=== PATIENT | male | born 1990 | race Caucasian/White ===

== ENCOUNTER 2017-08-19 23:38 | Emergency (ER) | payer OTHER ==
[~2017-08-19 23:38] MED LIST: AUGMENTIN 875 M1 TAB PO; BACTROBAN OINT.15 GM TOP; IBUPROFEN800 MG PO; MOTRIN 600 MG600 MG PO; ZOFRAN 4 MG TABL4 MG PO; ZOFRAN ODT4 MG SL
[2017-08-19 23:45] VITALS: BP 127/94
--- NOTE | 2017-08-19 23:55 | ED PSYCHIATRIC COMPLAINT ---
History of Present Illness General Chief Complaint: ETOH/Drug Related Complaint Stated Complaint: BIBA +ETOH, FOUND SLEEPING IN BUSHES Source: patient, old records, EMS Exam Limitations: intoxication Vital Signs & Intake/Output Vital Signs & Intake/Output Vital Signs Date Time Temp Pulse Resp B/P B/P Pulse O2 O2 Flow FiO2 Mean Ox Delivery Rate 08/19 2358 100 Room Air 08/19 2345 98.3 123 18 127/94 97 Room Air Allergies Coded Allergies: No Known Allergies (03/18/17) Reconcile Medications AMOXICILLIN/POTASSIUM CLAV (Augmentin 875-125 Tablet) 875 MG/125 MG TAB 1 TAB PO BID DENTAL INFECTION Ibuprofen 800 MG TAB 1 TAB PO TID PRN PAIN Mupirocin (Bactroban Oint. 2% 15GM) 15 GM ONT 1 DEON TOP BID IMPETIGO Ondansetron (Zofran Odt) 4 MG TAB.RAPDIS 1 TAB SL Q8HR PRN NAUSEA Triage Note: TRIAGE: BIBA FOUND IN BUSHES, +ETOH. 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 DENIES SI/HI. SLURRED SPEECH NOTED. PER EMS, "WITNESSED 15 NIPS OF ETOH." PATIENT SPOKE TO MOTHJuan Jose ON PHONE ON ARRIVAL AND REPORTS, "MY GRANDMA IS GOING TO COME PICK ME UP NOW." Triage Nurses Notes Reviewed? yes Onset: Just prior to arrival Duration: hour(s):, constant, continues in ED Timing: recent history Severity: severe Associated Symptoms: impaired concentration HPI: Patient admits to alcohol ingestion found in bushes with decreased level of consciousness. He denies fever chills nausea vomiting diarrhea abdominal pain chest pain shortness breath headache dysuria rash bleeding. Past History Travel History Traveled to [place] past 21 day No Medical History Any Pertinent Medical History? 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 No Review of Systems Review of Systems Constitutional: Reports: no symptoms. EENTM: Reports: no symptoms. Respiratory: Reports: no symptoms. Cardiovascular: Reports: no symptoms. GI: Reports: no symptoms. Genitourinary: Reports: no symptoms. Musculoskeletal: Reports: no symptoms. Skin: Reports: no symptoms. Neurological/Psychological: Reports: see HPI, cognitive dysfunction, confusion. Hematologic/Endocrine: Reports: no symptoms. Immunologic/Allergic: Reports: no symptoms. All Other Systems: Reviewed and Negative Physical Exam Physical Exam General Appearance: well developed/nourished, alert, awake, mild distress Head: atraumatic, normal appearance Eyes: Bilateral: normal appearance, PERRL, EOMI. Ears, Nose, Throat: normal pharynx, normal ENT inspection, hearing grossly normal Neck: normal inspection, supple, full range of motion, no midline tenderness Respiratory: normal breath sounds Cardiovascular: regular rate/rhythm Gastrointestinal: soft, non-tender Extremities: normal range of motion Neurological/Psychiatric: awake, credit counselor II-XII nml as tested, disoriented x 3 Appearance/Memory/Insight: disheveled, impaired insight, impaired recent memory Behavoir/Eye Contact/Speech: cooperative Thoughts/Hallucinations: no apparent hallucination Skin: intact, normal color, warm/dry SAD PERSONS Done? patient not suicidal Progress Differential Diagnosis: drug intoxication, drug overdose, drug withdrawal, hypoglycemia Plan of Care: Orders Procedure Date/time Status ETHANOL 08/20 0003 Complete Laboratory Tests 08/20/17 0009: Serum Alcohol 414.0 Departure Departure Disposition: HOME OR SELF CARE Condition: Stable Clinical Impression Primary Impression: Alcohol intoxication delirium Referrals: Chana Sutton (PCP/Family) Departure Forms: DETOX FACILITIES LIST General Discharge Information
== END 2017-08-20 00:20 ==
LOC: ERH 23:38
DX: F10.921 Alcohol use, unspecified with intoxication delirium (principal)
CPT/HCPCS: G0480

== ENCOUNTER 2017-11-22 22:21 | Emergency (ER) | payer OTHER ==
[~2017-11-22] VITALS: Ht 154.9 cm; Wt 59.0 kg
[2017-11-22 22:56] LABS: ABSOLUTE BASOPHIL COUNT 0 /CUMM (0.0-0.2); ABSOLUTE EOSINOPHIL COUNT 0.2 /CUMM (0.0-0.7); ABSOLUTE GRANULOCYTE CT 4.6 /CUMM (1.4-6.5); ABSOLUTE LYMPH COUNT 3.8 /CUMM (1.2-3.4); ABSOLUTE MONOCYTE COUNT 0.9 /CUMM (0.10-0.60); BASOPHIL % 0.3 % (0.0-2.0); EOSINOPHIL % 1.9 % (0-5); GRANULOCYTE % 48.1 % (42.2-75.2); HEMATOCRIT 40.5 % (42-52); MEAN CORPUSCULAR HGB 32.6 PG (27.0-31.0); MEAN CORPUSCULAR VOLUME 95.7 FL (80.0-94.0); MEAN PLATELET VOLUME 8.3 FL (7.4-10.4); PLATELET COUNT 160 /CUMM (130-400); RBC DISTRIBUTION WIDTH 13.6 % (11.5-14.5); RED BLOOD CELL CT 4.24 /CUMM (4.70-6.10); WHITE BLOOD CELL COUNT 9.6 /CUMM (4.8-10.8)
--- NOTE | 2017-11-23 00:02 | ED GENERAL ADULT ---
See Addendum History of Present Illness General Chief Complaint: ETOH/Drug Related Complaint Stated Complaint: ETOH Source: patient, friend Exam Limitations: intoxication Vital Signs & Intake/Output Vital Signs & Intake/Output Vital Signs Date Time Temp Pulse Resp B/P B/P Pulse O2 O2 Flow FiO2 Mean Ox Delivery Rate 11/23 1410 98.2 88 18 124/79 98 Room Air Room Air 11/23 1119 97.9 95 18 129/93 96 Room Air Room Air 11/23 0751 97.0 80 20 116/68 96 Room Air 11/23 0609 98.3 88 18 115/70 98 Room Air 11/23 0355 98.3 97 22 110/83 95 Room Air 11/23 0009 98.8 112 20 118/59 95 Room Air 11/22 2224 96.8 114 18 143/97 95 Room Air ED Intake and Output 11/23 0000 11/22 1200 Intake Total Output Total 975 Balance -975 Output, Urine 975 Patient 130 lb Weight Weight Estimated Measurement Method Allergies Coded Allergies: No Known Allergies (03/18/17) Triage Note: PT BROUGHT TO ED BY EMPLOYERS S/P BEING "SEVERLY INTOXICATED AT WORK" WAS GOING OUTSIDE FREQUENTLY S/P ARRIVING AT WORK AT 4 PM. PT LIVES WITH GRANDMOTHER. PT HAS SEVERLY SLURRED SPEACH, HAS APPEARS WHAT TO BE VOMIT ON SHIRT, VERY UNSTABLE GAIT Triage Nurses Notes Reviewed? yes Onset: Abrupt Duration: day(s): (1), constant, continues in ED Timing: single episode today Injury Environment: home Severity: moderate, severe No Modifying Factors: none HPI: 27-year-old male history of depression and alcohol abuse presents for evaluation of intoxication. According to his coworkers he was found to be severely intoxicated at work. He was having difficulty walking slurring his speech. Patient is significantly intoxicated he is unable to contribute to history. He denies any concerns. Denies any history of withdrawal seizures. He denies any drug use. Denies suicidal or homicidal ideation. (Joao BENTON,Derek) Reconcile Medications No Known Home Medications (Ambrosio MITCHELL,Eugene) Past History Travel History Traveled to [place] past 21 day No Medical History Any Pertinent Medical History? 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 No (Derek Cabello) Review of Systems Review of Systems Constitutional: Reports: no symptoms. EENTM: Reports: no symptoms. Respiratory: Reports: no symptoms. Cardiovascular: Reports: no symptoms. GI: Reports: no symptoms. Genitourinary: Reports: no symptoms. Musculoskeletal: Reports: no symptoms. Skin: Reports: no symptoms. Neurological/Psychological: Reports: no symptoms. Hematologic/Endocrine: Reports: no symptoms. Immunologic/Allergic: Reports: no symptoms. All Other Systems: Reviewed and Negative (Derek Cabello) Physical Exam Physical Exam General Appearance: well developed/nourished, no apparent distress, alert, awake , intoxicated Head: atraumatic, normal appearance Eyes: Bilateral: normal appearance, PERRL, EOMI. Ears, Nose, Throat: normal pharynx, normal ENT inspection, hearing grossly normal Neck: normal inspection, supple, full range of motion Respiratory: normal breath sounds, chest non-tender, no respiratory distress, lungs clear Cardiovascular: regular rate/rhythm, normal peripheral pulses Peripheral Pulses: 2+ radial (R), 2+ radial (L) Gastrointestinal: soft, non-tender Back: normal inspection, normal range of motion Extremities: normal inspection, normal range of motion, no edema Neurologic/Psych: no motor/sensory deficits, awake, alert, oriented x 3, normal gait Skin: intact, normal color, warm/dry Lymphatic: no anterior cervical dre Core Measures ACS in differential dx? No CVA/TIA Diagnosis: No Sepsis Present: No Sepsis Focused Exam Completed? No (Derek Cabello) Progress Differential Diagnoses I considered the following diagnoses in my evaluation of the patient: [Alcohol intoxication, drug intoxication] Plan of Care: Orders Procedure Date/time Status Regular Diet 11/23 B Active CIWA 11/23 1404 Active ETHANOL 11/23 0830 Complete ED CRISIS PSYCH CONSULT 11/23 0321 Active URINE DRUG SCREEN FOR ER ONLY 11/22 223 Complete URINALYSIS 11/22 2234 Complete MAGNESIUM 11/22 223 Complete ETHANOL 11/22 2234 Complete COMPREHENSIVE METABOLIC PANEL 11/22 2234 Complete CBC WITHOUT DIFFERENTIAL 11/22 2234 Complete Current Medications Sig/Joann Start time Last Medication Dose Stop Time Status Admin Clonidine 0.1 MG Q8 11/23 2199 UNVr (Catapres) Gabapentin 300 MG Q8 11/23 2199 UNVr (Neurontin) Cyanocobalamin/ 1 BAG ONCE ONE 11/23 1814 AC 11/23 Thiamine/Pyridoxine 11/244 182 (Vitamin in I.V.) Dextrose/Water 1,000 ML (D5W 1000) Sodium Chloride 1,000 ML BOLUS ONE 11/23 1814 AC 11/23 (Normal Saline 0.9%) 11/23 1913 182 Laboratory Tests 11/23/17 0814: Serum Alcohol 307.0 11/22/17 2335: Urine Opiates Screen < 100, Methadone Screen < 40, Barbiturate Screen < 60, Ur Phencyclidine Scrn < 6.00, Amphetamines Screen < 100, U Benzodiazepines Scrn < 85, Urine Cocaine Screen < 50, Urine Cannabis Screen 18.80, Urine Color STRAW, Urine Clarity CLEAR, Urine pH 7.0, Ur Specific [place] 1.010, Urine Protein NEG, Urine Ketones NEG, Urine Nitrite NEG, Urine Bilirubin NEG, Urine Urobilinogen 0.2, Ur Leukocyte Esterase NEG, Ur Microscopic EXAM NOT REQUIRED, Urine Hemoglobin NEG, Urine Glucose NEG 11/22/178: Anion Gap 19 H, Estimated GFR > 60, BUN/Creatinine Ratio 11.8, Glucose 118 H, Calcium 9.0, Magnesium 2.0, Total Bilirubin 0.5, AST 278 H, ALT 172 H, Alkaline Phosphatase 141 H, Total Protein 8.2, Albumin 4.7, Globulin 3.5, Albumin/Globulin Ratio 1.3, CBC w Diff NO MAN DIFF REQ, RBC 4.24 L, MCV 95.7 H , MCH 32.6 H, MCHC 34.0, RDW 13.6, MPV 8.3, Gran % 48.1, Lymphocytes % 40.1, Monocytes % 9.6 H, Eosinophils % 1.9, Basophils % 0.3, Absolute Granulocytes 4.6, Absolute Lymphocytes 3.8 H, Absolute Monocytes 0.9 H, Absolute Eosinophils 0.2, Absolute Basophils 0, Serum Alcohol 553.0 Patient seen and evaluated. He appears grossly intoxicated slurring his speech unsteady gait. History is not entirely clear and limited by the patient's intoxication. Labs ordered. Patient was monitored. Patient's alcohol level is extremely elevated to 550. He is clinically intoxicated. He'll be kept in the emergency department until he is sober for further evaluation. Patient's signed out to Dr. Bassett. Initial ED EKG: none Hand-Off Endorsed To: Mat Bassett MD Endorsed Time: 0148 Pending: other (sobriety) (Derek Cabello) Hand-Off Endorsed To: Eugene Valente MD Endorsed Time: 0700 Pending: other (Mat Bassett MD) Hand-Off Endorsed To: Mat Bassett MD Endorsed Time: 1900 Pending: consult, other (CIWA) Comments: Now clinically sober with increasing CIWA score, nausea, tremors. Zofran, ativan, banana bag, gabapentin, clonidine ordered. (Eugene Valente MD) Departure Departure Disposition: STILL A PATIENT Condition: Stable Referrals: Chana Sutton (PCP/Family) Departure Forms: Customer Survey General Discharge Information (Derek Cabello) PA/CIVIL DIVISION COMMANDER DEPUTY SHERIFF Co-Sign Statement Statement: ED Attending supervision documentation- [] I saw and evaluated the patient. I have also reviewed all the pertinent lab results and diagnostic results. I agree with the findings and the plan of care as documented in the PA's/CIVIL DIVISION COMMANDER DEPUTY SHERIFF's documentation. [x] I have reviewed the ED Record and agree with the PA's/CIVIL DIVISION COMMANDER DEPUTY SHERIFF's documentation. [] Additions or exceptions (if any) to the PAs/CIVIL DIVISION COMMANDER DEPUTY SHERIFF's note and plan are summarized below: [] (Mat Bassett MD) Departure Clinical Impression Primary Impression: Alcohol intoxication Qualifiers: Complication of substance-induced condition: uncomplicated Qualified Code: F10.920 - Alcohol use, unspecified with intoxication, uncomplicated Secondary Impressions: Alcohol dependence with withdrawal Prescriptions: Current Visit Scripts No Known Home Medications (Eugene Valente MD) Critical Care Note Critical Care Note Critical Care Time: non-applicable (Derek Cabello) Critical Care Note Critical Care Note Critical Care Time: non-applicable (Derek Cabello)
[2017-11-24 08:31] VITALS: BP 129/70
--- NOTE | 2017-11-24 08:38 | ED PSYCH CRISIS CONSULTATION ---
See Addendum Crisis Consult Basic Assessment Date of Consult: 11/24/17 Responsible Person/Accompanied By: self/employer Insurance Authorization: Insurance #1: Insurance name: MELO MARTINEZ Phone number: Policy number: [id number] Group number: Authorization number: ED Provider: Patient's ED Provider: Derek Cabello Primary Care Physician: Patient's PCP: Chana Sutton PCP's Current Psychiatrist: none Chief Complaint: ETOH/Drug Related Complaint Patient's Quote: I drank a little too much Present Illness: Pt is a 27 yo male presenting to [facility] ED Thursday evening. Pt was brought in by his employer due to being intoxicated at work. 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 Pt ED BAL was 553. Pt reports having 7-8 nips on Thursday but typically drinks 12-13 nips. Pt reports daily etoh consumption past 4 yrs. Urine tox screen was negative for drug use. Denies any history of withdrawal seizures. He denies any drug use. Denies suicidal or homicidal ideation. Pt denies gun access. Pt denies AH/VH. No presence of psychotic thought. Pt scores depression 3/10 and anxiety 3/10. Pt denies prior psychiatric or substance abuse tx hx. Pt reports no hx of psychiatric medicaine. Pt reports his father of heart attack at age 13 and he has resided with his grandarents past several yrs. Pt presents as alert, calm , cooperative and OX3. Case reviewed with Dr Rivas. Recommendation is inpatient detox for etoh. Pt reports motivation to stop drinking and agrees with plan for treatment at alcohol detox facility. Patient's Address: [address] [place] [address] Other Phone Number: Who Do You Live With? Family (grandparents) Family/Informants Interviewed: collateral provided by pt grandmother Stephie [phone]. She reports concern regarding pt's etoh use. She reports finding several empty nip bottles under his bed yesterday when she cleaned the room. She reports minimal awareness to the extent of his etoh use. She reports he has no prior psychiatric or substance use tx hx. She wants him to go to detox to stop etoh use. 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 Supportive grandparents. Psychiatric Treatment History Psych Treatment Psychiatric Treatment No Inpatient Treatment No Outpatient Treatment No Substance Use/Abuse History Drug Use/Abuse Substances Used/Abused Yes Substance Used/Abused Alcohol First Use age 16 Last Used thursday How much used/taken 7-8 nips How often daily For how long past 5 yrs Substance Abuse Treatment Substance Abuse Treatment Past Substance Abuse [place] No Inpatient Treatment No Outpatient Treatment No Comments: pt reports daily 12-13 nips past 3-4 yrs. Pt reports no detox/etoh tx hx. Pt reports occasional marijuana and daily cigarette use. Current Mental Status Mental Status Orientation: Person, Place, Situation Affect: WNL Speech: WNL Neuro-vegetative: Sleep Disturbance Appearance Appearance- Dress/Hygiene: hospital scrubs; good eye contact; sitting up in bed. Behaviors Thought Process: WNL Thought Content: WNL Memory: WNL Insight: Fair SI/HI Risk Assessment Past Suicidal Ideation/Attempts No Current Suicidal Ideation/Att No Past Homicidal Ideation/Att: No Current Homicidal Ideation/Attempts No Degree of Intent: None Gravely Disabled: Poor Judgment Risk Factors: substance abuse, male Lethality Ratin (mild) PTSD Checklist PTSD Done? patient declined ED Management Sitter: Yes Restraints: No DSM5/PS Stressors/Medical Prob Diagnosis' (DSM 5, Stressors, Medical): Alcohol Use D/O F10.20 Current GAF: 35 Comments: pt reports fdc daily etoh use of 12-13 nips. No prior detox or substance use tx. Departure Disposition Psych Medical Clearance Date: 11/24/17 Medically Cleared at: 0715 Time Started: 0715 Time Ended: 0800 Psychiatrist Consulted: Janine Rivas MD Date Disposition Established: 11/24/17 Time Disposition Established: 844 Plan for Disposition - Modality: Inpatient Detoxification Rationale for Disposition: extreme alcoholism. Pt wants to detox and stop drinking. Referrals Jules BENTON,Chana Presley (PCP/Family)
== END 2017-11-24 10:53 | disposition short-term general hospital (02) ==
LOC: ERH 22:21
PROVIDERS: Physician Assistant Medical
DX: F10.129 Alcohol abuse with intoxication, unspecified (principal); F10.239 Alcohol dependence with withdrawal, unspecified
CPT/HCPCS: 80307; 81003; G0463; G0480; J3101; J7060

== ENCOUNTER 2018-01-09 01:21 | Emergency (ER) | payer OTHER ==
[~2018-01-09 01:21] MED LIST changes: +ATIVAN1 M1 PO
--- NOTE | 2018-01-09 01:36 | ED GENERAL ADULT ---
See Addendum History of Present Illness General Chief Complaint: Fall Stated Complaint: BIBA ETOH, FALL Source: patient, EMS Exam Limitations: intoxication Vital Signs & Intake/Output Vital Signs & Intake/Output Vital Signs Date Time Temp Pulse Resp B/P B/P Pulse O2 O2 Flow FiO2 Mean Ox Delivery Rate 01/09 0720 98.9 92 16 118/92 98 Room Air 01/09 0711 97.7 87 18 123/76 98 Room Air 01/09 0129 Room Air Allergies Coded Allergies: No Known Allergies (03/18/17) Reconcile Medications LORazepam (Ativan) 1 MG TAB 2 TAB PO TID PRN alcohol withdrawal day 1: 2 tab 3x/day day 2: 1 tab 4x/day day 3: 1 tab 3x/day day 4: 1 tab 2x/day day 5: 1 tab Triage Nurses Notes Reviewed? yes Onset: Abrupt Duration: minute(s): Timing: single episode today HPI: 27 year old male presents to the Emergency Department intoxicated after fall from standing in a bar. He admits to drinking and is a poor historian. He is noted to have blood on his head. Patient was brought in by ambulance. He is awake and alert but obviously intoxicated. He denies any drug use. He says he he drank alcohol and fell backwards hitting his head. He works at [employer]. (Ty Aguilar DO) Past History Travel History Traveled to [place] past 21 day No Medical History Any Pertinent Medical History? 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 No (Ty Aguilar DO) Review of Systems Review of Systems Constitutional: Reports: see HPI. EENTM: Reports: see HPI. Respiratory: Reports: no symptoms. Cardiovascular: Reports: no symptoms. GI: Reports: no symptoms. Genitourinary: Reports: no symptoms. Musculoskeletal: Reports: no symptoms. Skin: Reports: no symptoms. Neurological/Psychological: Reports: no symptoms. Hematologic/Endocrine: Reports: no symptoms. Immunologic/Allergic: Reports: no symptoms. (Ty Aguilar DO) Physical Exam Physical Exam General Appearance: well developed/nourished, intoxicated Head: contusions Eyes: Bilateral: normal appearance, PERRL, EOMI. Ears, Nose, Throat: normal ENT inspection, hearing grossly normal Neck: normal inspection Respiratory: normal breath sounds Cardiovascular: regular rate/rhythm Peripheral Pulses: 4+ radial (R), 4+ radial (L) Gastrointestinal: non-tender Back: normal range of motion Extremities: normal inspection Neurologic/Psych: awake, alert Skin: intact, laceration Core Measures ACS in differential dx? No CVA/TIA Diagnosis: No Sepsis Present: No Sepsis Focused Exam Completed? No (Ty Aguilar DO) Progress Differential Diagnoses I considered the following diagnoses in my evaluation of the patient: [ Intracranial bleed, fracture, alcohol intoxication, drug overdose] Plan of Care: Orders Procedure Date/time Status URINE DRUG SCREEN FOR ER ONLY 01/09 221 Complete ETHANOL 01/09 134 Complete COMPREHENSIVE METABOLIC PANEL 01/09 134 Complete CBC WITHOUT DIFFERENTIAL 01/09 134 Complete Laboratory Tests 01/09/18225: Anion Gap 17 H, Estimated GFR > 60, BUN/Creatinine Ratio 27.5 H, Glucose 101 H, Calcium 9.0, Total Bilirubin 0.3, AST 81 H, ALT 91 H, Alkaline Phosphatase 146 H, Total Protein 7.8, Albumin 4.7, Globulin 3.1, Albumin/Globulin Ratio 1.5 , CBC w Diff MAN DIFF ORDERED, RBC 4.33 L, MCV 94.4 H, MCH 32.5 H, MCHC 34.4, RDW 12.5, MPV 8.6, Gran % 49.8, Lymphocytes % 40.5, Monocytes % 6.3, Eosinophils % 2.8, Basophils % 0.6, Absolute Granulocytes 4.5, Segmented Neutrophils 45, Absolute Lymphocytes 3.6 H, Lymphocytes 47, Monocytes 6, Absolute Monocytes 0.6 , Eosinophils 2, Absolute Eosinophils 0.3, Absolute Basophils 0.1, Platelet Estimate ADEQUATE, Stomatocytes 1+, Serum Alcohol 405.0 01/09/18219: Urine Opiates Screen < 100, Methadone Screen < 40, Barbiturate Screen < 60, Ur Phencyclidine Scrn < 6.00, Amphetamines Screen < 100, U Benzodiazepines Scrn > 800 H, Urine Cocaine Screen < 50, Urine Cannabis Screen 43.90 Initial ED EKG: none (Ty Aguilar DO) Comments: 01/09/2018 8:22:39 AM patient 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 01/09/2018 11:42:11 AM Leif is requesting to leave. He offers no complaint at this time and states he feels "strong". He adamantly denies suicide ideation despite his grandmothers report that he did express suicide ideation yesterday ( I provided her a brief update earlier this morning when she called to check on Leif). He states that he was drinking at the time and attributes any comments to the alcohol. He has politely declined evaluation by crisis. Speech is clear and his gait is stable. He is capable medical decision making. I feel he is stable for discharge. (Perla MITCHELL,Ty Ventura) Departure Departure Condition: Stable Referrals: Jules BENTON,Chana Presley (PCP/Family) Departure Forms: Customer Survey General Discharge Information Comments IMPRESSION: 1. No acute intracranial finding. 2. No acute fracture or malalignment of the cervical spine. DICTATED BY: David Caldwell MD DATE/TIME DICTATED:01/09/18300 CONSULTING PSYCHIATRIST:ANTON DATE/TIME TRANSCRIBED:01/09/18300 CONFIDENTIAL, DO NOT COPY WITHOUT APPROPRIATE AUTHORIZATION. <Electronically signed in Other Vendor System> SIGNED BY: Paulette MITCHELL,David 01/09 0306 01/09/18 4 AM The patient is pending reevaluation. He will be signed out to Dr. Duncan at [address] scan of the head and neck were negative. (Ty Aguilar DO) Departure Disposition: HOME OR SELF CARE Clinical Impression Primary Impression: Head injury Qualifiers: Encounter type: initial encounter Qualified Code: S09.90XA - Unspecified injury of head, initial encounter Secondary Impressions: Alcohol intoxication Qualifiers: Complication of substance-induced condition: uncomplicated Qualified Code: F10.920 - Alcohol use, unspecified with intoxication, uncomplicated Scalp abrasion Qualifiers: Encounter type: initial encounter Qualified Code: S00.01XA - Abrasion of scalp, initial encounter Additional Instructions: Cut down on your alcohol intake. Follow-up with your primary care physician on [facility] for reevaluation. Consider detox program or AAA. Bacitracin to your scalp wound over the next 72 hours. Return if any concerns or sudden worsening. Please note that there might be incidental findings in your evaluation that are unrelated to the current emergency department visit. Please notify your primary care doctor about this emergency department visit in order to obtain and review all of the testing performed so that these incidental findings can be monitored as needed. If you had an x-ray performed, please understand that some fractures or other findings may not be seen on the initial set of x-rays. If your symptoms persist you might need a repeat set of x-rays to check for such a fracture. If you had a laceration evaluated, please understand that foreign bodies such as glass or wood may not be visible to the naked eye or on plain x-rays. If the wound becomes red, swollen, increasingly more painful or if there is any drainage from the wound, please have it reevaluated by a physician for the possibility of a retained foreign body. If you're unable to follow up as outlined in the discharge instructions please return to the emergency department. Thank you for choosing the [facility] Emergency Department for your care. It was a pleasure to serve you today. Ty Duncan M.D. [facility] (Perla MITCHELL,Ty Ventura) Critical Care Note Critical Care Note Critical Care Time: non-applicable (Ty Aguilar DO)
[2018-01-09 02:37] LABS: ABSOLUTE BASOPHIL COUNT 0.1 /CUMM (0.0-0.2); ABSOLUTE EOSINOPHIL COUNT 0.3 /CUMM (0.0-0.7); ABSOLUTE GRANULOCYTE CT 4.5 /CUMM (1.4-6.5); ABSOLUTE LYMPH COUNT 3.6 /CUMM (1.2-3.4); ABSOLUTE MONOCYTE COUNT 0.6 /CUMM (0.10-0.60); BASOPHIL % 0.6 % (0.0-2.0); EOSINOPHIL % 2.8 % (0-5); GRANULOCYTE % 49.8 % (42.2-75.2); HEMATOCRIT 40.8 % (42-52); MEAN CORPUSCULAR HGB 32.5 PG (27.0-31.0); MEAN CORPUSCULAR HGB CONC 34.4 G/DL (33.0-37.0); MEAN CORPUSCULAR VOLUME 94.4 FL (80.0-94.0); MEAN PLATELET VOLUME 8.6 FL (7.4-10.4); PLATELET COUNT 211 /CUMM (130-400); RBC DISTRIBUTION WIDTH 12.5 % (11.5-14.5); RED BLOOD CELL CT 4.33 /CUMM (4.70-6.10)
--- NOTE | 2018-01-09 03:06 | CT SCAN REPORT ---
EXAMINATION: NONCONTRAST HEAD CT NONCONTRAST CERVICAL SPINE CT INDICATION INFORMATION: Fall. Head injury. COMPARISON: 07/16/2009 TECHNIQUE: Separate noncontrast CT examinations of the head and cervical spine were performed. Coronal and sagittal images were created for each examination at the technologist workstation. DLP: 996 mGy-cm FINDINGS: Head: There is no evidence of acute intracranial hemorrhage or territorial infarction. No abnormal mass effect or midline shift is seen. Esquivel to white matter differentiation is well preserved. No extra-axial fluid collections are identified. No hydrocephalus. No significant volume loss. There is no abnormal attenuation within the brain parenchyma. No acute osseous or soft tissue abnormality. The mastoid air cells and visualized portions of the paranasal sinuses are well aerated. Cervical spine: There is anatomic alignment of the vertebral bodies and posterior elements. The atlantoaxial and atlantooccipital articulations are intact. Vertebral body heights and intervertebral disc spaces are maintained. No evidence of acute fracture. No prevertebral soft tissue swelling. Visualized portions of the lung apices are unremarkable. The thyroid gland is unremarkable. IMPRESSION: 1. No acute intracranial finding. 2. No acute fracture or malalignment of the cervical spine.
[2018-01-09 12:10] VITALS: BP 120/72
== END 2018-01-09 12:11 ==
LOC: ERH 01:21
PROVIDERS: Emergency Medicine
DX: S09.90XA Unspecified injury of head, initial encounter (principal); S00.01XA Abrasion of scalp, initial encounter; F10.129 Alcohol abuse with intoxication, unspecified; W19.XXXA Unspecified fall, initial encounter
CPT/HCPCS: 80307; G0480

== ENCOUNTER 2018-03-10 22:52 | Emergency (ER) | payer OTHER ==
--- NOTE | 2018-03-11 01:05 | ED PSYCHIATRIC COMPLAINT ---
History of Present Illness General Chief Complaint: ETOH/Drug Related Complaint Stated Complaint: BIBA PEER ETOH Source: patient, old records, EMS Exam Limitations: no limitations Vital Signs & Intake/Output Vital Signs & Intake/Output Vital Signs Date Time Temp Pulse Resp B/P B/P Pulse O2 O2 Flow FiO2 Mean Ox Delivery Rate 03/10 2312 130 03/10 2259 98.1 136 20 161/89 96 ED Intake and Output 03/11 0000 03/10 1200 Intake Total 0 Output Total Balance 0 Intake, Oral 0 Allergies Coded Allergies: No Known Allergies (03/18/17) Reconcile Medications LORazepam (Ativan) 1 MG TAB 2 TAB PO TID PRN alcohol withdrawal day 1: 2 tab 3x/day day 2: 1 tab 4x/day day 3: 1 tab 3x/day day 4: 1 tab 2x/day day 5: 1 tab Triage Note: PT BIBA FROM HOME ON PEER WITH C/O EXCESSIVE INTOXICATION. EMS REPORTS THAT PT WAS INTOXICATED AT HOME AND WAS "BEING DISRUPTIVE", REFUSING TO BE QUIET AND GO TO SLEEP. PT'S GRANDPARENTS THEN CALLED POLICE. PT ARRIVES A&O, ADMITS TO ETOH CONSUMPTION TODAY. CALM AND COOPERATIVE WITH STAFF. DENIES SI/HI Triage Nurses Notes Reviewed? yes Onset: Just prior to arrival Duration: hour(s):, constant, continues in ED Timing: recent history Severity: moderate Associated Symptoms: impaired concentration HPI: The patient's family called 911 for excessive drunkenness. The patient denies fever chills nausea vomiting diarrhea abdominal pain chest pain shortness of breath headache dysuria rash bleeding suicidal ideation homicidal ideation hallucination. Past History Travel History Traveled to [place] past 21 day No Medical History Any Pertinent Medical History? 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 No Review of Systems Review of Systems Constitutional: Reports: no symptoms. EENTM: Reports: no symptoms. Respiratory: Reports: no symptoms. Cardiovascular: Reports: no symptoms. GI: Reports: no symptoms. Genitourinary: Reports: no symptoms. Musculoskeletal: Reports: no symptoms. Skin: Reports: no symptoms. Neurological/Psychological: Reports: see HPI, cognitive dysfunction. Hematologic/Endocrine: Reports: no symptoms. Immunologic/Allergic: Reports: no symptoms. All Other Systems: Reviewed and Negative Physical Exam Physical Exam General Appearance: well developed/nourished, alert, awake, comfortable, severe distress, thin Head: atraumatic, normal appearance Eyes: Bilateral: normal appearance, PERRL, EOMI. 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 patient not suicidal Progress Differential Diagnosis: drug intoxication, drug overdose, hypoglycemia Plan of Care: Observation for sobriety Departure Departure Disposition: HOME OR SELF CARE Condition: Stable Clinical Impression Primary Impression: Alcohol intoxication delirium Referrals: Chana Sutton (PCP/Family) Departure Forms: General Discharge Information
[2018-03-11 06:37] VITALS: BP 130/72
== END 2018-03-11 06:39 ==
LOC: ERH 22:52
DX: F10.121 Alcohol abuse with intoxication delirium (principal); F17.210 Nicotine dependence, cigarettes, uncomplicated; F32.9 Major depressive disorder, single episode, unspecified